=== PATIENT | female | born 1985 | race African-American/Black ===

== ENCOUNTER 2017-04-11 11:22 | Emergency (ER) | payer MEDICAID, OTHER ==
[~2017-04-11] VITALS: Ht 160 cm; Wt 68.0 kg
[~2017-04-11 11:22] MED LIST: IBUPROFEN400 MG ORAL; NKM; ZOFRAN ODT4 MG ORAL
[2017-04-11 11:42] VITALS: BP 95/43
[2017-04-11 12:14] LABS: BASOPHILS % (AUTO) 0.7 % (0.0-2.0); EOSINOPHILS % (AUTO) 0.5 % (0.0-3.0); LYMPHOCYTES % (AUTO) 14.6 % (20.0-45.0); MEAN CORPUSCULAR HEMOGLOBIN 27.9 PG (27.0-31.0); MEAN CORPUSCULAR HGB CONC 31.4 G/DL (32.0-36.0); MEAN CORPUSCULAR VOLUME 89 FL (80-99); MEAN PLATELET VOLUME 7.4 FL (6.5-10.1); MONOCYTES % (AUTO) 5.9 % (1.0-10.0); NEUTROPHILS % (AUTO) 78.4 % (45.0-75.0); PLATELET COUNT 302 K/UL (150-450); RED CELL DISTRIBUTION WIDTH 13.3 % (11.6-14.8); WHITE BLOOD COUNT 15.2 K/UL (4.8-10.8)
--- NOTE | 2017-04-11 12:29 | Emergency Room Report ---
History of Present Illness General Chief Complaint: Dyspnea/Respdistress Source: Patient Present Illness HPI 31YOF walk-in, with episodes of dyspnea. Occurred since last night. "Cant catch a full breath." Denies cough, URI symptoms, fever/chills. Denies smoking, asthma history. Denies DVT/PE history in self, family Denies ETOH, drug use Had episode previously at outside hospital "2 months ago" - "they did nothing" and discharged her. Has not had OB followup Denies abd pain, nausea/vomiting, vaginal bleeding Allergies: Coded Allergies: ACYCLOVIR (Verified Allergy, Unknown, 07/10/16) Patient History Past Medical History: none Past Surgical History: none Pertinent Family History: none Social History: Denies: alcohol use, drug use, smoking Now: Yes Nursing Documentation-[facility] Past Medical History: No Stated History Review of Systems All Other Systems: negative except mentioned in HPI Physical Exam Vital Signs Date Time Temp Pulse Resp B/P Pulse Ox O2 Delivery O2 Flow Rate FiO2 04/11/17 11:34 98.1 82 15 95/43 100 Room Air Sp02 EP Interpretation: reviewed, abnormal General Appearance: normal inspection, well appearing, no apparent distress, alert, GCS 15, non-toxic Head: normocephalic, atraumatic Eyes: bilateral eye EOMI, bilateral eye PERRL ENT: normal ENT inspection, hearing grossly normal, normal voice Neck: normal inspection, full range of motion, supple, no bony tend Respiratory: normal inspection, lungs clear, normal breath sounds, no respiratory distress, no retraction, no wheezing Cardiovascular #1: regular rate, rhythm, no edema Gastrointestinal: normal inspection, normal bowel sounds, non tender, soft, no guarding, no hernia, other - Gravid abdomen Genitourinary: no CVA tenderness Musculoskeletal: normal inspection, back normal, normal range of motion, Scotty' s Sign negative Neurologic: normal inspection, alert, oriented x3, responsive, insights strategist III-XII nml as tested, motor strength/tone normal, speech normal Psychiatric: normal inspection, judgement/insight normal, mood/affect normal Skin: normal inspection, normal color, no rash Medical Decision Making Diagnostic Impression: Primary Impression: Dyspnea Qualified Codes: R06.00 - Dyspnea, unspecified Additional Impression: UTI (urinary tract infection) during Qualified Codes: O23.42 - Unspecified infection of urinary tract in , second trimester ER Course Dyspnea - VSS. BP on lower side likely d/t - No hypoxia or tachypnea or tachycardia - Labs: H&H stable. Leuks 15K likely leukocytosis of . Was 14K on previous visit. Afebrile. No cough. No crackles on lung exam. UA + for UTI. Abdomen grossly non-focal. No meningitis. - D-dimer elevated - ECG: NSR. No right heart strain. No sinus tachy. No S1Q3T3 for PE. No other ischemia to signify dilated cardiomyopathy Endorsed to Dr Campuzano at 230pm to f/up duplex sono. If negative, do CT Chest. IF also negative, DC home with Abx for UTI. Initial Rocephin given in ED. EKG Diagnostic Results Rate: normal Rhythm: NSR ST Segments: no acute changes ASA given to the pt in ED: No Rhythm Strip Diag. Results EP Interpretation: yes Rate: 89 Rhythm: NSR, no PVC's, no ectopy Chest X-Ray Diagnostic Results Chest X-Ray Ordered: No - Deferred d/t Last Vital Signs Date Time Temp Pulse Resp B/P Pulse Ox O2 Delivery O2 Flow Rate FiO2 04/11/17 11:42 98.1 15 95/43 100 Room Air 04/11/17 11:42 82 Status: improved Disposition: HOME, SELF-CARE Referrals: [facility],REFERRING (PCP) PERRY DIAZ M.D. Apr 11, 2017 12:29
[2017-04-11 12:35] LABS: TROPONIN I < 0.30 ng/mL (<=0.30)
[2017-04-11 12:38] LABS: ALANINE AMINOTRANSFERASE 12 U/L (3-33); ALBUMIN/GLOBULIN RATIO 1.1 (1.0-2.7); ANION GAP 16 (5-15); ASPARTATE AMINO TRANSFERASE 15 U/L (5-40); CALCIUM 9.1 mg/dL (8.6-10.2); CARBON DIOXIDE 22 mEQ/L (20-30); CHLORIDE 98 mEQ/L (98-107); CREATININE 0.5 mg/dL (0.5-0.9); GLOMERULAR FILTRATION RATE > 60 mL/min (>60); HEMOLYSIS 2; POTASSIUM 3.8 mEQ/L (3.4-4.9); SODIUM 136 mEQ/L (135-145); TOTAL PROTEIN 6.6 g/dL (6.6-8.7)
[2017-04-11 12:48] LABS: CKMB < 1.5 ng/mL (< 3.8)
[2017-04-11 13:08] LABS: APPEARANCE,URINE CLEAR; KETONES,URINE NEGATIVE (NEGATIVE); LEUKOCYTE ESTERASE ,URINE 3+ (NEGATIVE); NITRITE,URINE NEGATIVE (NEGATIVE); PH,URINE 8 (4.5-8.0); PROTEIN,URINE NEGATIVE (NEGATIVE); UROBILINOGEN,URINE NORMAL MG/DL (0.0-1.0)
[2017-04-11 13:23] LABS: RBC,URINE 0-2 /HPF (0 - 2); SQUAMOUS EPITHELIAL CELL,UR FEW /LPF (NONE/OCC)
[2017-04-11 13:24] LABS: BACTERIA,URINE FEW /HPF
[2017-04-11] MEDS ORDERED: PRENATAL FORMU1 EAC5 PO (14:03)
[2017-04-11 14:08] VITALS: BP 101/64
[2017-04-11] MEDS ORDERED: cefTRIAXone 1 GM in NS 55 ML IVPB ONE (14:30)
[2017-04-11 14:54] VITALS: BP 96/61
--- NOTE | 2017-04-11 15:35 | Pre-Procedure Note/Attestation ---
Pre-Procedure Note/Attestation Complete Prior to Procedure Planned Procedure: not applicable Procedure Narrative: Chest CTA Indications for Procedure Pre-Operative Diagnosis: SOB, possible PE. 22 weeks Attestation I attest that I discussed the nature of the procedure; its benefits; risks and complications; and alternatives (and the risks and benefits of such alternatives ), prior to the procedure, with the patient (or the patient's legal livestock sales representative). I attest that, if there was a reasonable possibility of needing a blood transfusion, the patient (or the patient's legal livestock sales representative) was given the [facility] standardized written summary, pursuant to the Lenard [place] Blood Safety Act ([place] Health and Safety Code # 1645, as amended). I attest that I re-evaluated the patient just prior to the surgery and that there has been no change in the patient's H&P, except as documented below: Pt. is , imaging study for PE req by ER physicians. Alternatives (CT, VQ scan, no test) discussed at length to pt. Risk of maternal and radiation and contrast exposure discussed. Importance of accurate dx. discussed. She understands and wishes to proceed. GIORGIO BEYER M.D. Apr 11, 2017 15:35
[2017-04-11] MEDS ORDERED: TYLENOL325 MG ORAL (16:09)
[2017-04-11] MEDS ORDERED: NITROFURANTOIN100 M2 ORAL (16:09)
--- NOTE | 2017-04-11 16:11 | Diagnostic Imaging Report ---
ndication: Shortness of breath Technique: Imaging study for suspected pulmonary embolus inpatient with elevated d-dimer requested by ED physician. CT recommended due to lower dose than on the CT scan. Patient was counseled by myself concerning potential and maternal risk related to radiation dosage and contrast administration, versus the risk of a missed diagnosis. Alternatives (no imaging exam, ventilation/perfusion scan) were presented to the patient. She understood and wished to proceed with the CT scan. Patient was counseled to obtain thyroid screening after giving IV administration nonionic contrast. Spiral acquisitions obtained from the lung bases to the lung apices. Multiplanar and 3-D reconstructions were generated. Total dose length product 716 mGycm. CTDIvol(s) 12, 12, 50, 23 mGy. Dose reduction achieved using automated exposure control Comparison: None Findings: No intraluminal filling defects or other abnormality to suggest acute pulmonary embolus demonstrated. No evidence of thoracic aortic aneurysm or dissection. Normal branching anatomy of the great neck vessels. Normal caliber pulmonary arteries. Normal heart size. No evidence of right ventricular dilatation. The lungs are clear. There is a trace left pleural effusion. No infiltrates or congestion. There is a 2 mm nodule in the anterolateral left upper lobe, image 15 of series 8. No other nodules or masses are demonstrated. No pericardial effusion. No mediastinal or hilar mass or adenopathy. The included portions of the thyroid are unremarkable. No axillary or chest wall mass or adenopathy. Prominent veins are seen within the anterior chest subcutaneous soft tissues. No definite central venoocclusive disease demonstrated, however. The bones are unremarkable. Impression: Evidence of acute pulmonary embolus or other acute thoracic pathology 2 mm nodule in the anterolateral left upper lobe. No further followup is necessary there is no significant smoking history or other risk factors for lung carcinoma. If there are significant risk factors, recommend followup CT at 6-12 months. Prominent chest veins. Significance uncertain, as there is no evidence of central venoocclusive disease The CT scanner at [facility] is accredited by the [employer] and the scans are performed using protocols designed to limit radiation exposure to as low as reasonably achievable to attain images of sufficient resolution adequate for diagnostic evaluation.
[2017-04-11 17:17] VITALS: BP 113/68
--- NOTE | 2017-04-13 08:23 | Diagnostic Imaging Report ---
Indication: Pelvic pain, 22 weeks Technique: Transabdominal images of the gravid uterus Comparison: 01/13/2016 Findings: There is a single live intrauterine . There is positive heart activity, heart rate 142 beats for minute. There is a posterior fundal placenta, which clears the internal cervical os. Presentation is cephalic. Amniotic fluid volume is normal, amniotic fluid index approximately 22 mm. measurements as follows: Biparietal diameter 60 mm, 24 weeks 3 days; head 225 mm, 24 weeks 3 days; abdominal circumference and 97 mm, 24 weeks 3 days; femur length 44 mm, 24 weeks 2 days. Estimated gestational age by average of ultrasound measurements is 24 weeks 3 days. Estimated gestational age by dates is 24 weeks one day. Estimated date of delivery is 07/29/2017. No gross anomalies. Normal four-chamber heart, lateral ventricles, cerebellum, spine, extremities, stomach, cord insertion, three-vessel cord, urinary bladder are demonstrated. Kidneys and stomach reported as normal by technologist, but no images recorded to confirm this Impression: 24 week 3 day single live intrauterine , by average of ultrasound measurements. No unusual features
--- NOTE | 2017-04-13 19:12 | Cardiology Report ---
APPROVED REPORT EKG Measurement Heart [id number] Normal sinus rhythm Possible Left atrial enlargement Borderline ECG
== END 2017-04-11 17:18 | disposition home or self-care (01) ==
LOC: EMR 12:00 → EDBEDREQ 12:59 → EMR 17:18
DX: R06.00 Dyspnea, unspecified (principal); Z88.8 Allergy status to other drugs, medicaments and biological substances; R91.1 Solitary pulmonary nodule; O23.42 Unspecified infection of urinary tract in pregnancy, second trimester; Z3A.24 24 weeks gestation of pregnancy
CPT/HCPCS: 36415; 71275; 76801; 76830; 80053; 81003; 81025; 82550; 82553; 84484; 85025; 85379; 87086; 93005; 93970; 96374; 99284; J0696; Q9967

== ENCOUNTER 2018-01-01 20:14 | Emergency (ER) | payer MEDICAID ==
[~2018-01-01] VITALS: Ht 160 cm; Wt 64.4 kg
[~2018-01-01 20:14] MED LIST changes: +NITROFURANTOIN100 M2 ORAL; +PRENATAL FORMU1 EAC5 PO; +TYLENOL325 MG ORAL
[2018-01-01] MEDS ORDERED: Dicyclomine HCl 10mg/5ml oral soln ORAL ONE (21:00)
[2018-01-01] MEDS ORDERED: Sodium Chloride 500ML 500 ML IV ONE (21:13)
[2018-01-01 22:00] LABS: APPEARANCE,URINE SLIGHTLY CLOUDY; BILIRUBIN, URINE NEGATIVE (NEGATIVE); GLUCOSE, URINE (UA) NEGATIVE (NEGATIVE); KETONES,URINE 3+ (NEGATIVE); LEUKOCYTE ESTERASE ,URINE 1+ (NEGATIVE); NITRITE,URINE NEGATIVE (NEGATIVE); PH,URINE 5 (4.5-8.0); PROTEIN,URINE 2+ (NEGATIVE); UROBILINOGEN,URINE 4 MG/DL (0.0-1.0)
[2018-01-01 22:09] LABS: COLOR,URINE YELLOW
[2018-01-01] MEDS ORDERED: KEFLEX500 MG ORAL (23:16)
[2018-01-01 23:25] VITALS: BP 120/74
[2018-01-01 23:35] VITALS: BP 120/74
--- NOTE | 2018-01-02 02:41 | Emergency Room Report ---
History of Present Illness General Chief Complaint: Abdominal Pain Source: Patient Present Illness HPI 32-year-old female presents ED for evaluation. Patient states that she is experiencing cramping abdominal pain and diarrhea 1 day. States that she brought her son who is also experiencing similar symptoms. Cramping, 5 out of 10, nonradiating. Notes nausea denies vomiting. Denies fevers or chills. Denies recent antibiotic use. Denies recent travel. No other aggravating relieving factors. Denies any other associated symptoms Allergies: Coded Allergies: ACYCLOVIR (Verified Allergy, Unknown, 07/10/16) Patient History Past Medical History: none Past Surgical History: none Pertinent Family History: none Social History: Denies: smoking, alcohol use, drug use Last Menstrual Period: 12/13/17 Now: No : 4 Para: 2 Immunizations: UTD Reviewed Nursing Documentation: PMH: Agreed, PSxH: Agreed Nursing Documentation-PMH Past Medical History: No Stated History Review of Systems All Other Systems: negative except mentioned in HPI Physical Exam Vital Signs Date Time Temp Pulse Resp B/P (MAP) Pulse Ox O2 Delivery O2 Flow Rate FiO2 01/01/18 20:26 98.0 67 16 118/71 97 Room Air 98.1 Sp02 EP Interpretation: reviewed, normal General Appearance: no apparent distress, alert, GCS 15, non-toxic Head: normocephalic, atraumatic Eyes: bilateral eye normal inspection, bilateral eye PERRL ENT: hearing grossly normal, normal pharynx, no angioedema, normal voice Neck: full range of motion, supple/symm/no masses Respiratory: chest non-tender, lungs clear, normal breath sounds, speaking full sentences Cardiovascular #1: regular rate, rhythm, no edema Cardiovascular #2: 2+ carotid (R), 2+ carotid (L), 2+ radial (R), 2+ radial (L) , 2+ dorsalis pedis (R), 2+ dorsalis pedis (L) Gastrointestinal: normal bowel sounds, non tender, soft, non-distended, no guarding, no rebound Rectal: deferred Genitourinary: normal inspection, no CVA tenderness Musculoskeletal: back normal, gait/station normal, normal range of motion, non- tender Neurologic: alert, oriented x3, responsive, motor strength/tone normal, sensory intact, speech normal Psychiatric: judgement/insight normal, memory normal, mood/affect normal, no suicidal/homicidal ideation Reflexes: 3+ bicep (R), 3+ bicep (L), 3+ tricep (R), 3+ tricep (L), 3+ knee (R) , 3+ knee (L) Skin: normal color, no rash, warm/dry, well hydrated Lymphatic: no adenopathy Medical Decision Making Diagnostic Impression: Primary Impression: UTI (urinary tract infection) Qualified Codes: N39.0 - Urinary tract infection, site not specified Additional Impression: Gastroenteritis ER Course Hospital Course 32-year-old F presents to ED with cramping abdominal pain with nausea, diarrhea differential diagnosis: gastritis, SBO, cholecystits, gastroenteritis Clinical course Patient placed on stretcher. On hall monitor. After initial history and physical I ordered IVFs, UA, zofran and bentyl Labs -UA + bacteria Discussed findings with patient. Patient is complaining of some increased urinary frequency. Consistent with gastroenteritis given that her son also is presenting with similar symptoms I feel this is a highly complex case requiring extensive working including EKG/ Rhythm strip, Xray/CT/US, Blood/urine lab work, repeat exams while in ED, and administration of strong opiates/narcotics for pain control, admission to hospital or close patient follow up. Diagnosis - gastroenteritis, UTI Stable and discharged to home with prescriptions for Keflex. Followup with PMD. Return to ED if symptoms recur or worsen Labs Test 01/01/18 21:42 Urine Color Yellow Urine Appearance Slightly cloudy Urine pH 5 (4.5-8.0) Urine Specific [place] 1.025 (1.005-1.035) Urine Protein 2+ (NEGATIVE) Urine Glucose (UA) Negative (NEGATIVE) Urine Ketones 3+ (NEGATIVE) Urine Occult Blood 1+ (NEGATIVE) Urine Nitrite Negative (NEGATIVE) Urine Bilirubin Negative (NEGATIVE) Urine Urobilinogen 4 MG/DL (0.0-1.0) Urine Leukocyte Esterase 1+ (NEGATIVE) Urine RBC 2-4 /HPF (0 - 2) Urine WBC 0-2 /HPF (0 - 2) Urine Squamous Epithelial Cells Few /LPF (NONE/OCC) Urine Bacteria Few /HPF (NONE) Urine HCG, Qualitative Negative (NEGATIVE) Last Vital Signs Date Time Temp Pulse Resp B/P (MAP) Pulse Ox O2 Delivery O2 Flow Rate FiO2 01/01/18 23:35 98.1 72 16 120/74 97 Room Air 98.1 Status: improved Disposition: HOME, SELF-CARE Condition: Stable Scripts Cephalexin* (KEFLEX*) 500 Mg Capsule 500 MG ORAL Q6H, #28 CAP 0 Refills Prov: JAZMIN BANDA M.D. 01/01/18 Patient Instructions: Acute Urinary Retention, Female JAZMIN BANDA M.D. Jan 02, 2018 02:41
== END 2018-01-01 23:35 | disposition home or self-care (01) ==
LOC: EMR 20:36
DX: N39.0 Urinary tract infection, site not specified (principal); K52.9 Noninfective gastroenteritis and colitis, unspecified
CPT/HCPCS: 81003; 81025; 96361; 96374; 99284